=== PATIENT | male | born 1960 | race African-American/Black ===

== ENCOUNTER 2019-04-18 14:20 | Emergency (ER) | payer OTHER ==
[~2019-04-18] VITALS: Ht 165.1 cm; Wt 98.9 kg
[2019-04-18 14:49] VITALS: TEMP 98.1
[2019-04-18] MEDS ORDERED: LISI20TA11 PO (16:42)
[2019-04-18] MEDS ORDERED: METF500T PO (16:43)
[2019-04-18] MEDS ORDERED: AMLODIPINE BESYLATE PO (16:43)
[2019-04-18] MEDS ORDERED: MOBIC15 MG PO (16:43)
[2019-04-18] MEDS ORDERED: CELEXA40 MG PO (16:44)
[2019-04-18] MEDS ORDERED: GLIM4TAB PO (16:44)
[2019-04-18 17:00] VITALS: BP 148/95
== END 2019-04-18 17:58 | disposition home or self-care (01) ==
LOC: ED 14:20
DX: R04.0 Epistaxis (principal)
CPT/HCPCS: 99282

== ENCOUNTER 2020-12-16 10:03 | Emergency (ER) | payer OTHER ==
[~2020-12-16] VITALS: Ht 165.1 cm; Wt 99.8 kg
[~2020-12-16 10:03] MED LIST: AMLODIPINE BESYLATE PO; CELEXA40 MG PO; GLIM4TAB PO; LISI20TA11 PO; METF500T PO; MOBIC15 MG PO
[2020-12-16 10:54] LABS: PLATELET COUNT 118 K/uL (142-355)
[2020-12-16 11:00] LABS: POTASSIUM 3.5 mmol/L (3.6-5.2); SODIUM 137 mmol/L (136-145)
[2020-12-16 11:14] LABS: PARTIAL THROMBOPLASTIN TIME 26.6 SECONDS (24.5-33.6)
[2020-12-16 11:17] VITALS: BP 124/78; TEMP 98.2
== END 2020-12-16 11:17 | disposition home or self-care (01) ==
LOC: ED 10:03
PROVIDERS: Hospitalist
DX: J06.9 Acute upper respiratory infection, unspecified (principal); R42 Dizziness and giddiness; R50.9 Fever, unspecified; E11.65 Type 2 diabetes mellitus with hyperglycemia; U07.1 COVID-19
CPT/HCPCS: 36415; 80053; 80320; 82550; 83880; 84484; 85027; 85610; 85730; 87635; 93005; 96360; 96361; 96372; 99284; J1815; U0003

== ENCOUNTER 2020-12-19 02:23 | Inpatient (IN) | payer OTHER ==
[2020-12-19] VITALS (8 sets, daily range): BP systolic 148–168; BP diastolic 86–100; TEMP 97.9–102; Ht 165.1 cm; Wt 90.4 kg
[~2020-12-19] VITALS: Ht 165.1 cm; Wt 90.4 kg
[2020-12-19 03:22] LABS: PLATELET COUNT 179 K/uL (142-355)
[2020-12-19 03:23] LABS: POTASSIUM 3.9 mmol/L (3.6-5.2); SODIUM 139 mmol/L (136-145)
[2020-12-19] MEDS ORDERED: SIMV40TA57 PO (19:38)
[2020-12-19] MEDS ORDERED: DULOXETINE HYDR60 MG PO (19:39)
[2020-12-19] MEDS ORDERED: FISH OIL1 C10 PO (19:40)
[2020-12-20] VITALS: BP 161/95; TEMP 98.9
[2020-12-20 04:00] VITALS: BP 145/88; TEMP 97.7
[2020-12-20 04:23] LABS: PLATELET COUNT 218 K/uL (142-355)
[2020-12-20 04:36] LABS: POTASSIUM 3.8 mmol/L (3.6-5.2)
[2020-12-20 08:00] VITALS: BP 176/111; TEMP 97.9
[2020-12-20 12:00] VITALS: BP 150/97; TEMP 98.2
--- NOTE | 2020-12-20 15:45 | NUR ---
IN PT RM TO HANG MEDICCATION, PT UP IN CHAIR, PT AMBULATED FROM CHAIR TO BATHROOM WITHOUT O2 OR ASSISTANCE, PT AMBULATED IN RM AND O2 DROPPED TO 81% ON RA, NAD NOTED, PT STATES HE DOES NOT FEEL DIZZY OR SOB, PT RETURNED TO BED AND NC APPLIED, PT LYING IN HF, NONLABBORED BREATHING, NO FURTHER NEEDS AT THIS TIME, CALL LIGHT PLCAED WITHIN REACH, WILL CONTINUE TO MONITOR
[2020-12-20 16:00] VITALS: BP 149/97; TEMP 98.3
[2020-12-20 20:00] VITALS: BP 150/103; TEMP 98.4
[2020-12-21] VITALS (7 sets, daily range): BP systolic 144–160; BP diastolic 96–102; TEMP 97.5–98.4
[2020-12-21 04:46] LABS: PLATELET COUNT 245 K/uL (142-355)
--- NOTE | 2020-12-21 05:52 | NUR ---
CALLED TO PATIENTS ROOM BY HER SON STATING THAT "I THINK MOM HAS PASSED." UPON ENTERING PATIENTS ROOM, PATIENT FOUND WITHOUT ANY SPONTANEOUS RESPIRATIONS, NO PALABLE CAROTID PULSE FELT AND NO AUDIBLE HEARTBEAT HEARD. DR. OVIEDO CALLED AT 0557.DR. OVIEDO HERE AT 0559 AND CONFIRMED PATIENT , TIME OF 0557 AM. [employer] CALLED AT 0612 AND PATIENT RULED OUT FOR DONATION AT THIS TIME WITH REFERRAL #[id number]. PATIENTS TWO SONS AT BEDSIDE AND STATE TO CALL [facility]. [facility] AFTER HOURS CALL SYSTEM NOTIFIED AT 0615 AM.
--- NOTE | 2020-12-21 08:00 | NUR ---
Pt. RESTING WITH 02 AT 4L PER NC.
--- NOTE | 2020-12-21 14:10 | NUR ---
REMOVE O2. SAT DECREASED TO 87% RESTING.
--- NOTE | 2020-12-21 14:26 | NUR ---
Spoke with patient about discharging home on Thursday and the need for oxygen. He asked hand sign writer to speak to his Oj and arrange for her to pick and shovel man oxygen. Spoke with Oj Thao at [phone] and explained patient would need oxygen and he was discharging home on Thursday. She said that she would pick and shovel man the oxygen at [facility] today around 4pm for thursday discharge. Orders faxed to [facility] and notified of to pick and shovel man oxygen today.
--- NOTE | 2020-12-22 00:59 | NUR ---
DR. FLORENTINO CALLED AND GAVE NEW ORDER FOR RESTORIL 15 MG PO FOR SLEEP. PT WAS GIVEN THIS MED ORDERED.
[2020-12-22 04:28] VITALS: BP 152/97; TEMP 97.4
--- NOTE | 2020-12-22 06:25 | NUR ---
PT IS RESTING WITH EYES CLOSED. PT HAS RESTED WELL AFTER HIS RESTORIL WAS GIVEN.
[2020-12-22 08:00] VITALS: BP 154/102; TEMP 97.9
[2020-12-22 12:00] VITALS: BP 121/104; TEMP 97.2
--- NOTE | 2020-12-22 14:38 | NUR ---
12/22/20 1425 RESTING IN BED PT STATES HE DOESNOT MUCH TO EAT FOR LUNCH IS A LITTLE SLEEPY,ENCOURAGED PT TO GET UP AND SIT ON SIDE OF BED.PT VERBALIZED UNDERSTANDING.CC
--- NOTE | 2020-12-22 15:40 | NUR ---
12/22/20 1540 PT FAMILY PRESENT AT WINDOW TO SEE PATIENT BROUGHT SOME CLOTHES FOR HIM.WEARING HF NAD NOTED.CC
[2020-12-22 16:00] VITALS: BP 152/104; TEMP 98
[2020-12-22 20:29] VITALS: BP 150/101; TEMP 97.6
[2020-12-23] VITALS: BP 156/100; TEMP 97.5
[2020-12-23 04:24] VITALS: BP 157/104; TEMP 98.2
--- NOTE | 2020-12-23 04:41 | NUR ---
ER PHYSICIAN- DR BERNABE NOTIFIED OF PT'S BLOOD PRESSURE OF 157/104. PHYSICIAN GAVE ORDER FOR CLONIDINE 0.2 PO ONE TIME DOSE. ORDER NOTED AND CARRIED OUT AT THIS TIME.
[2020-12-23 08:00] VITALS: BP 139/93; TEMP 98.3
[2020-12-23 08:43] LABS: PLATELET COUNT 304 K/uL (142-355)
[2020-12-23 08:54] LABS: POTASSIUM 3.5 mmol/L (3.6-5.2)
[2020-12-23] MEDS ORDERED: CHOL100034 PO (11:56)
[2020-12-23] MEDS ORDERED: DEXA4TAB2 PO (11:56)
[2020-12-23] MEDS ORDERED: ASCO500T18 PO (11:56)
[2020-12-23] MEDS ORDERED: ZINC220C4 PO (11:57)
[2020-12-23] MEDS ORDERED: CEFDINIR300 MG PO (11:58)
[2020-12-23] MEDS ORDERED: AZIT250T3 PO (11:58)
[2020-12-23 12:00] VITALS: BP 164/101; TEMP 97.6
--- NOTE | 2020-12-23 12:30 | NUR ---
PT HAD A 225 BLOOD GLUCOSE LEVEL. 6 UNITS OF SLIDING SCALE INSULIN WAS ADMINISTERED INTO THE PT'S ABDOMEN.
--- NOTE | 2020-12-23 15:30 | NUR ---
PT HAS RECIEVED DISCHARGE INSRUCTIONS ALONG WITH EDUCATION. PT VERBALIZED UNDERSTANDING OF INSTRUCTIONS AND WAS GIVEN PRINTED INFORMATION AND EDUCATION TO REVIEW NEEDED. PT'S IV WAS REMOVED WITHOUT DIFFICULTY WITH CATHETER STILL INTACT. PT WAS DISCHARGED TO [facility] WHERE HIS WAS WAITING WITH HOME O2 TANK VIA WHEELCHAIR. PT WAS PLACED INSIDE THE PERSONAL VEHICLE ALONG WITH PERSONAL BELONGINGS. INCIDENT RESPONSE LEAD ENSURED THAT PT WAS HOOKED TO HOME O2 TANK AND THAT TANK WAS WORKING PROPERLY BEFORE LETTING PT LEAVE. NAD WAS NOTED DURING DISCHARGE FROM HOSPITAL.
== END 2020-12-23 15:31 | disposition home or self-care (01) | DRG 177 ==
LOC: ED 02:23 → MED/SURG 05:28
PROVIDERS: Emergency Medicine Emergency Medical Services; Internal Medicine; Internal Medicine Endocrinology, Diabetes & Metabolism; ADMIT Internal Medicine; ATTEND Internal Medicine
DX: U07.1 COVID-19 (principal); J12.82 Pneumonia due to coronavirus disease 2019; J96.01 Acute respiratory failure with hypoxia; I10 Essential (primary) hypertension; F32.89 Other specified depressive episodes; E11.65 Type 2 diabetes mellitus with hyperglycemia; E78.49 Other hyperlipidemia
CPT/HCPCS: 36415; 36600; 80053; 82805; 82948; 84484; 85027; 87635; 94760; 96360; 96365; 96372; 96375; 99284; J0456; J0696; J1650; J1815; J2930; U0003